=== PATIENT | female | born 1995 | race Two or more races ===

== ENCOUNTER 2016-04-23 19:35 | Emergency (ER) | payer BC | END 2016-04-23 20:50 | disposition left against medical advice (07) | LOC: ER 19:35 | DX: K62.5 Hemorrhage of anus and rectum (principal); Z53.21 Procedure and treatment not carried out due to patient leaving prior to being seen by health care provider ==

== ENCOUNTER 2016-08-11 22:05 | Emergency (ER) | payer BC ==
[~2016-08-11] VITALS: Ht 180.3 cm; Wt 45.4 kg
[2016-08-11 22:22] VITALS: BP 128/83
[2016-08-11] MEDS ORDERED: AMOX1TAB61 PO (23:28)
[2016-08-11] MEDS ORDERED: DIPHTH,PERTUSS(ACELL),TET TOX 0.5 ML DISP.SYRIN. VAX IM ONE (23:30)
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
== END 2016-08-11 23:35 | disposition home or self-care (01) ==
LOC: ER 22:05
DX: S51.851A Open bite of right forearm, initial encounter (principal); F12.10 Cannabis abuse, uncomplicated; J45.909 Unspecified asthma, uncomplicated; Z88.5 Allergy status to narcotic agent; W50.3XXA Accidental bite by another person, initial encounter; Y93.89 Activity, other specified; Y92.89 Other specified places as the place of occurrence of the external cause; Y99.8 Other external cause status
CPT/HCPCS: 99283

== ENCOUNTER 2020-10-29 22:41 | Emergency (ER) | payer BC ==
[~2020-10-29] VITALS: Ht 154.9 cm; Wt 58.4 kg
[~2020-10-29 22:41] MED LIST: AMOX1TAB61 PO
[2020-10-30 01:00] VITALS: BP 141/90
--- NOTE | 2020-10-30 01:10 | PHYS DOC ---
Past Medical History Past Medical History: Asthma Past Surgical History: Tonsillectomy, Other Additional Past Surgical Histo: wisdom teeth Smoking Status: Current Every Day Smoker Alcohol Use: Occasionally Drug Use: Marijuana General Adult EDM: Chief Complaint: COUGH HPI: HPI: 25-year-old female presents the emergency department complaining of runny nose, congestion, sore lymph nodes, cough for the last several days that has been progressively worsening. She has not been vaccinated for COVID-19. She has a baby and a boyfriend at home with similar symptoms. She denies any other sick contacts. The patient denies nausea, vomiting, chest pain, shortness of breath, abdominal pain, urinary symptoms, recent trauma, or any other complaints. Review of Systems: Review of Systems: ROS otherwise negative except was mentioned in the HPI Heart Score: C/O Chest Pain: No Allergies: Allergies: Allergies Coded Allergies Type Severity Reaction Last Updated Verified codeine Allergy Mild RASH 11/09/14 Yes Physical Exam: PE: Constitutional: No acute distress, non-toxic appearance. HENT: Atraumatic, bilateral external ears normal, nose normal. Eyes: PERRLA, EOMI, conjunctiva normal, no discharge. Neck: Normal range of motion, supple, no stridor. Cardiovascular: Heart rate regular rhythm. 2+ radial pulses Lungs & Thorax: No respiratory distress, symmetrical expansion. Bilateral breath sounds clear to auscultation Abdomen: Soft, no tenderness Skin: Warm, dry. Extremities: No tenderness, no cyanosis, ROM intact, no edema. Neurologic: Alert and oriented X 3, normal motor function, normal sensory function, no focal deficits noted. Non ataxic gait. GCS 15. Psychologic: Affect normal, judgment normal, mood normal. Current Patient Data: Vital Signs: Vital Signs Date Time Temp Pulse Resp B/P (MAP) Pulse Ox O2 Delivery O2 Flow Rate FiO2 10/30/20 01:00 98.1 79 18 141/90 (107) 100 Room Air 98.1 Radiology/Procedures: Radiology/Procedures: No airspace disease, infiltrates or consolidations, lung cesar clear. No pneumothorax or pleural effusion. Cardiac silhouette within normal limits. No widening of mediastinum. No obvious free air seen. Impression: normal CXR. Interpreted by me, Dane Brand D.O. Course & Med Decision Making: Course & Med Decision Making My Orders - DANE BRAND DO Procedure Category Date Status Time Sars Cov2 (Sushma) LAB 10/30/20 Logged 01:04 Sars Antigen Indu Rapid LAB 10/30/20 Logged 01:04 Chest Ap Only RAD 10/30/20 Logged 01:04 Patient appears well clinically and likely has a viral URI, tested for Covid today, she will self quarantine at home Departure Departure Impression: Primary Impression: Upper respiratory infection Disposition: HOME / SELF CARE / HOMELESS Referrals: FERMIN PINTO MD (PCP) Patient Instructions: Upper Respiratory Infection, Adult, [id number] Additional Instructions: You were seen in the emergency department for a upper respiratory tract infection. You should return to the ED if you develop worsening cough, shortness of breath, chest pain, or any other new or concerning symptoms. You can use an OTC sinus rinse to help with sinus congestion. Your cough may persist for a few weeks but your other symptoms should gradually improve. You should make sure to drink plenty of fluids at home. DANE BRAND DO Oct 30, 2020 01:10
--- NOTE | 2020-10-30 03:33 | RAD ---
Chest AP portable at 0111: Reason for examination: Cough. The heart size is normal. Mediastinum is unremarkable. Lung cesar are clear. No acute bony abnormali ties are seen. Impression: No acute cardiopulmonary disease. Electronically signed by: Danna Younger MD (10/30/2020 3:31 AM) MARY
--- NOTE | 2020-10-30 17:30 | NUR ---
IP: Informed pt of negative covid test. Pt verbalized understanding.
== END 2020-10-30 01:35 | disposition home or self-care (01) ==
LOC: ER 22:41
DX: J06.9 Acute upper respiratory infection, unspecified (principal); Z20.822 Contact with and (suspected) exposure to COVID-19; J45.909 Unspecified asthma, uncomplicated; F17.200 Nicotine dependence, unspecified, uncomplicated; Z88.5 Allergy status to narcotic agent
CPT/HCPCS: 71045; 87426; 99284; U0003; U0005